=== PATIENT | male | born 1975 | race Caucasian/White ===

== ENCOUNTER 2016-07-17 12:30 | Emergency (ER) | payer OTHER | END 2016-07-17 16:21 | disposition home or self-care (01) | LOC: FER 12:30 | DX: S63.264A Dislocation of metacarpophalangeal joint of right ring finger, initial encounter (principal); W22.01XA Walked into wall, initial encounter; Y92.009 Unspecified place in unspecified non-institutional (private) residence as the place of occurrence of the external cause | CPT/HCPCS: 73130; 73140; 99283 ==

== ENCOUNTER 2021-06-08 08:03 | Emergency (ER) | payer OTHER ==
[2021-06-08] MEDS ORDERED: MOBIC15 MG PO (10:37)
[2021-06-08] MEDS ORDERED: DICLOFENAC SOD100 G1 TOP (10:37)
== END 2021-06-08 10:38 | disposition home or self-care (01) ==
LOC: FER 08:03
DX: M77.8 Other enthesopathies, not elsewhere classified (principal); Z88.5 Allergy status to narcotic agent; Z91.018 Allergy to other foods
CPT/HCPCS: 73080; 73110